=== PATIENT | male | born 1975 | race Caucasian/White ===

== ENCOUNTER → 2020-09-06 | Outpatient (CLI) | payer OTHER ==
--- NOTE | 2020-09-06 15:38 | REP ---
INDICATION: CRUSHING INJURY COMPARISON: None. TECHNIQUE: Four views left 5th digit. FINDINGS: There is no evidence of acute fracture, dislocation, or intrinsic bone disease.No radiopaque foreign body is seen in the soft tissues. IMPRESSION: No fracture or dislocation. <Electronically signed by Hadley Yarbrough > 09/06/20 1536
== END ==
LOC: M WUC 10:02
PROVIDERS: ATTEND Physician Assistant
DX: S67.197A Crushing injury of left little finger, initial encounter (principal); X58.XXXA Exposure to other specified factors, initial encounter; Y92.89 Other specified places as the place of occurrence of the external cause; Y93.9 Activity, unspecified; Y99.9 Unspecified external cause status

== ENCOUNTER → 2023-10-05 | Outpatient (CLI) | payer OTHER | LOC: M SLEEP HO 11:07 | PROVIDERS: ATTEND Internal Medicine | DX: G47.33 Obstructive sleep apnea (adult) (pediatric) (principal) ==

== ENCOUNTER → 2024-05-17 | Outpatient (CLI) | payer OTHER | LOC: M SLEEP 20:00 | PROVIDERS: ATTEND Internal Medicine Pulmonary Disease | DX: R06.83 Snoring (principal); G47.33 Obstructive sleep apnea (adult) (pediatric) ==

== ENCOUNTER → 2024-09-06 | Outpatient (CLI) | payer OTHER | LOC: M SLEEP 20:00 | PROVIDERS: ATTEND Internal Medicine Pulmonary Disease | DX: G47.33 Obstructive sleep apnea (adult) (pediatric) (principal) ==